=== PATIENT | female | born 1985 | race Hispanic/Latino ===

== ENCOUNTER 2017-08-21 15:38 | Inpatient (IN) | payer OTHER ==
[~2017-08-21] VITALS: Ht 157.5 cm; Wt 76.2 kg
[~2017-08-21 15:38] MED LIST: IBUP-1827 PO
[2017-08-21] MEDS ORDERED: Lactated Ringer's 1,000 ML IV PRN (17:22)
[2017-08-21] MEDS ORDERED: Lactated Ringer's 1,000 ML IV SCH (17:22)
[2017-08-21] MEDS ORDERED: Oxytocin 30 Units/500 mL LR 30 UNITS in IV Premix 1 EACH IV PRN ×2 (17:25→22:25)
[2017-08-21] MEDS ORDERED: Methylergonovine 0.2 mg/mL Inj IM PRN (17:25)
[2017-08-21] MEDS ORDERED: Oxytocin 10 Unit/mL Inj IM PRN (17:25)
[2017-08-21] MEDS ORDERED: diphenhydrAMINE 50 mg Capsule PO PRN (17:25)
[2017-08-21] MEDS ORDERED: Hemorrhage Kit, Post Partum XX ONE (17:25)
[2017-08-21] MEDS ORDERED: Ondansetron 2 mg/mL 2 mL Inj IVPUSH PRN (17:25)
[2017-08-21] MEDS ORDERED: Carboprost 250 mCg/mL Inj IM PRN (17:25)
[2017-08-21] MEDS ORDERED: fentaNYL-PF 50 mCg/mL 2 mL Inj IVPUSH PRN (17:25)
[2017-08-21] MEDS ORDERED: Sodium Chloride LOK Flush 10 mL Syringe IVFLUSH PRN (17:25)
[2017-08-21 17:39] LABS: Mean Corpuscular Hemoglobin 30.1 pg (27.0-35.0); Mean Corpuscular Volume 89.1 fL (81-100)
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
[2017-08-21] MEDS ORDERED: Misoprostol 25 mCg/0.25 Tablet VAGINAL PRN (22:24)
[2017-08-22] MEDS ORDERED: Lactated Ringer's 1,000 ML IV SCH ×2 (01:13→05:40)
[2017-08-22] MEDS ORDERED: Lactated Ringer's 500 ML IV ONE (01:13)
[2017-08-22] MEDS ORDERED: EPHEDrine Sulfate 50 mg/mL Inj IVPUSH PRN (01:15)
[2017-08-22] MEDS ORDERED: Ondansetron 2 mg/mL 2 mL Inj IVPUSH PRN ×2 (01:15→20:30)
[2017-08-22] MEDS ORDERED: Atropine 1 mg/10 mL (Code) Syringe IVPUSH PRN (01:15)
[2017-08-22] MEDS ORDERED: fentaNYL 2 mCg/mL-Bupiv 0.125% 100 ML EPIDURAL SCH (01:15)
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
[2017-08-22] MEDS ORDERED: Hemorrhage Kit, Post Partum XX ONE (05:40)
[2017-08-22] MEDS ORDERED: oxyCODONE-Acetamin 5-325 mg Tablet PO PRN (05:40)
[2017-08-22] MEDS ORDERED: Methylergonovine 0.2 mg/mL Inj IM PRN (05:40)
[2017-08-22] MEDS ORDERED: Benzocaine (Dermoplast) 20% 60 Gm Spray TOPICAL PRN (05:40)
[2017-08-22] MEDS ORDERED: Carboprost 250 mCg/mL Inj IM PRN (05:40)
[2017-08-22] MEDS ORDERED: Oxytocin 30 Units/500 mL LR 30 UNITS in IV Premix 1 EACH IV PRN (05:40)
[2017-08-22] MEDS ORDERED: Witch Hazel-Glycerin Pads TOPICAL PRN (05:40)
[2017-08-22] MEDS ORDERED: Oxytocin 10 Unit/mL Inj IM PRN (05:40)
--- NOTE | 2017-08-22 05:48 | PCM.OBVAG ---
Vaginal Delivery Date of Service Aug 22, 2017 Pre Operative Diagnosis Pre Operative Diagnosis Induction of 41 week term gestation due to non-reactive NST Post Operative Diagnosis Post Operative Diagnosis Normal Vaginal Delivery of 41 week gestation Procedure Obstetical Procedure: Normal Spontaneous Vaginal Delivery Combine Inspector/Architectural Examiner Provider and Architectural Examiner: MD Kimmy Bradshaw DO R1 Indication for Procedure Induction: Induction of labor Findings Obstetrical Findings: (Female), Cord (3 Vessel), Placenta (Intact/ Normal) Analgesia/Medications Obstetrical Anesthesia: Epidural Procedure Details Procedure Details The patient was noted to be complete and pushing. She continued to push, and the infant's vertex did deliver spontaneously in the SYDNEE position over an intact perineum. There was a single nuchal cord and the was delivered through this. The anterior shoulder delivered easily, followed by the posterior shoulder. The remainder of the infant was then easily delivered. After a 60 second cord clamping delay, the cord was then clamped and cut and the was placed upon the mother's abdomen where nursing personnel were in attendance. Cord blood was obtained. The placenta delivered intact spontaneously after Pitocin was started per protocol and was passed off the table. No perineal laceration repair was performed. Patient recovered in labor and delivery with her . All sponge, needle, and instrument counts were correct. Blood Loss & Administration Estimated Blood Loss: 250 Post Procedure Plan Post delivery Condition: Mom stable, Baby stable to nursery VTE Prophylaxis: Kimmy Velásquez DO Aug 22, 2017 05:48
[2017-08-22] MEDS ORDERED: Sodium Chloride LOK Flush 10 mL Syringe IVFLUSH SCH (08:30)
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
--- NOTE | 2017-08-22 17:28 | NUR ---
Social Work: Brief Note BELEN received a call from Paris with CPS regarding patient. Paris informed SW that she is en route to [facility] to meet with baby. Paris informed BELEN that she would not have time to meet with MOB today but could possibly complete a phone interview with MOB tomorrow. BELEN informed Paris that baby is in room with MOB. BELEN informed Paris that she would notify RN on unit of status. BELEN called and spoke with supervisor propellant charge loading on [facility]BC. BELEN informed RN that Paris was en route to meet with patient. manual lathe operator informed BELEN that she would notify primary RN. BELEN will continue to follow for additional needs. PADMINI Reyes
--- NOTE | 2017-08-22 17:54 | NUR ---
Social Work: Brief Note BELEN met with Paris ([phone]) from [facility] at patient's bedside. Paris provided SW with her business card and stated that she would contact SW tomorrow morning. Patient's mother is at bedside with . Patient is now in agreement to provide urine sample. BELEN notified primary RN and charge auditor. SW was informed that due to patient receiving narcotics earlier today, the urine sample will no longer be valid. net developer contract also confirmed that has produced urine three times however, the was no order to collect a urine sample. BELEN will continue to follow for needs. PADMINI Reyes
[2017-08-22] MEDS ORDERED: Promethazine 25 mg Rectal Suppository RECTAL PRN (20:30)
[2017-08-22] MEDS ORDERED: Ondansetron 8 mg ODT Tablet PO PRN (20:30)
[2017-08-22] MEDS ORDERED: Acetaminophen IV 1,000 MG in IV Premix 1 EACH IV PRN (20:30)
[2017-08-22] MEDS ORDERED: risperiDONE 1 mg Tablet PO SCH (21:00)
[2017-08-23 06:45] LABS: Mean Corpuscular Hemoglobin 30.2 pg (27.0-35.0); Mean Corpuscular Volume 91.2 fL (81-100)
--- NOTE | 2017-08-23 09:35 | PCM.DIOB ---
Obstetrical Disch Instruction Date of Service: Aug 23, 2017 Dates of Hospitalization Date of Hospital Admission Aug 21, 2017 at 17:18 Providers Admitting Physician: Kristine Phillips MD Primary Care Physician: Kristine Phillips MD Attending Physician: Kristine Phillips MD Discharge Diagnosis Discharge Diagnosis Status post normal vaginal delivery Problems: Diet Discharge Diet: No restrictions Activity Discharge Activity-General: Pelvic Rest for 6 weeks (no sex, no douching and no tampons ), Balance rest and activity, No lifting >10 pounds for 4-6 weeks Dressing and Incisional Care Hygiene: May shower (daily ) Follow Up Plan Follow-up Provider (F9): Kristine Phillips MD Follow-up appointment: Weeks (One-Two ) Call your provider for: Fever or Chills, Shortness of breath, Heavy vaginal bleeding, Heavy bleeding, Epigastric pain, Excessive constipation, Vaginal discomfort, Red painful breasts, Other (headache, change in vision, nausea/ vomiting or leg swelling, pain or change in color. ) Kristine Phillips MD Aug 23, 2017 09:35
[2017-08-23] MEDS ORDERED: IBUP-1827 PO (09:36)
[2017-08-23] MEDS ORDERED: DOCU-41 PO (09:36)
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
[2017-08-23 10:27] VITALS: BP 121/60; PULSE 72; RESP 18
== END 2017-08-23 11:02 | disposition home or self-care (01) | DRG 775 ==
LOC: FBCO 15:38 → FBC 17:18
PROVIDERS: ADMIT Obstetrics & Gynecology; ATTEND Obstetrics & Gynecology
PROC: 10E0XZZ Delivery of Products of Conception, External Approach (ICD-10-PCS; principal; 2017-08-22)
DX: O76 Abnormality in fetal heart rate and rhythm complicating labor and delivery (principal); O48.0 Post-term pregnancy; O77.0 Labor and delivery complicated by meconium in amniotic fluid; Z3A.41 41 weeks gestation of pregnancy; Z37.0 Single live birth